=== PATIENT | female | born 1960 | race Caucasian/White ===

== ENCOUNTER 2017-12-22 20:35 | Emergency (ER) | payer MEDICARE, OTHER ==
--- NOTE | 2017-12-22 21:55 | EKG REPORT ---
SEVERITY:- ABNORMAL ECG - ATRIAL-PACED COMPLEXES MULTIFORM VENTRICULAR PREMATURE COMPLEXES : Confirmed by: Haley Mckeon MD 22-Dec-2017 21:54:51
--- NOTE | 2017-12-22 22:15 | ER Document Report ---
ED General - General Chief Complaint: Chest Pain > 30 Stated Complaint: PAIN LEFT ARM Time Seen by Provider: 12/22/17 22:13 Notes: Patient is 57-year-old female presents with complaint of pain starting in the left mid arm and going down into her hand with a tingling station into her left hand. It is worse when she abducts her left shoulder. She says started around 5 PM. She had similar pain in June when she had a heart attack. At that time she also had associated chest pressure which she does not have this time. She denies any chest pain or chest pressure this time. No shortness of breath. She is here from [place]. 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 She denies any trauma or injuries to show that she is aware of. 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 That is why she has pacemaker. They did a heart cath and she did not have a coronary blockage and did not require any stenting. TRAVEL OUTSIDE OF THE [place] IN LAST 30 DAYS: No Past Medical History - Social History Smoking Status: Never Smoker Frequency of alcohol use: None Drug Abuse: None Family History: Reviewed & Not Pertinent Review of Systems - Review of Systems Notes: My Normal Review Basic REVIEW OF SYSTEMS: CONSTITUTIONAL : Denies fever, chills, or sweats. Denies recent illness. EENT: No head or face pain. CARDIOVASCULAR: Denies chest pain. RESPIRATORY: Denies cough, cold, or chest congestion. Denies shortness of breath, difficulty breathing, or wheezing. GASTROINTESTINAL: Denies abdominal pain. Denies nausea, vomiting, or diarrhea. MUSCULOSKELETAL: Pain in left arm. NEUROLOGICAL: Denies altered mental status or loss of consciousness. Denies weakness or paralysis or loss of use of either side. Tingling type sensation into left hand. ALL OTHER SYSTEMS REVIEWED AND NEGATIVE. Physical Exam - Vital signs Vitals: Temp Pulse Resp BP Pulse Ox 98.5 F 69 20 160/70 H 96 12/22/17 20:54 12/22/17 20:54 12/22/17 20:54 12/22/17 20:54 12/22/17 20:54 - Notes Notes: General Appearance: Well nourished, alert, cooperative, no acute distress, no obvious discomfort. Vitals: reviewed, See vital signs table. Eyes: PERRL, EOMI, Conjuctiva clear Mouth: No decreasd moisture Neck: Supple, no neck tenderness, No thyromegaly Lungs: No wheezing, No rales, No rhonci, No accessory muscle use, good air exchange bilaterally. Heart: Normal rate, Regular rythm, No murmur, no rub Abdomen: Normal BS, soft, No rigidity, No abdominal tenderness, No guarding, no rebound, Extremities: strength 5/5 in all extremities, good pulses in all extremities, patient has repeat reduction of her symptoms including arm pain when I abduct her left shoulder. No pain with flexion of the shoulder. Patient has good distal sensation into her left hand. She is able to oppose her thumb with her fifth digit. She is able to abduct and abduct the fingers of her hands. She is able to open and close her fist without difficulty. Skin: warm, dry, appropriate color, no rash Neuro: speech clear, oriented x 3, normal affect, responds appropriately to questions. Course - Re-evaluation Re-evalutation: 12/23/17 06:06 Patient's troponin is negative. She had a previous KS she had chest pressure associated with the left arm pain. This time she has no chest pressure or chest pain. Her KS was in June. At that time she had a follow-up heart cath which showed no evidence of coronary disease or obstruction. At that time her KS was related to her dysrhythmia of tachybradycardia syndrome. She now has a pacemaker and is not having arrhythmia on the monitor. She looks well. Pain is reproduced with abduction of her left shoulder. It appears to be more musculoskeletal. At this time I feel she is safe to be discharged home but informed her she needs to have a low threshold to return to the ER if she has worsening recurrent pain, any pain or pressure in her chest, difficulty breathing, or she feels unwell in any way. Patient agrees with plan will be discharged home. Dictation of this chart was performed using voice recognition software; therefore, there may be some unintended grammatical errors. - Vital Signs Vital signs: Temp Pulse Resp BP Pulse Ox 98.1 F 62 20 136/68 H 96 12/22/17 23:48 12/22/17 23:48 12/22/17 23:48 12/22/17 23:48 12/22/17 23:48 - Laboratory Result Diagrams: 12/22/17 22:45 12/22/17 22:45 Laboratory results interpreted by me: 12/22/17 22:45 Chloride 108 H Glucose 134 H ALT 67 H - EKG Interpretation by Me Additional EKG results interpreted by me: 12/22/17 22:14 EKG is reviewed and interpreted by me. EKG shows sinus rhythm with a rate of [address] segment elevation or depression. Patient does have occasional PVC. VT interval, QRS duration, QTc intervals are within normal range. No old EKG available for comparison at this time. Discharge - Discharge Clinical Impression: Left arm pain Condition: Good Disposition: HOME, SELF-CARE Additional Instructions: Please follow up with your doctor as soon as you get back to [place]. Please have a low threshold to return to the ER if you have chest pressure, chest pain , difficulty breathing, weakness, worsening pain in your arm, or feel that you are worsening in any way.
[2017-12-22 23:04] LABS: ABSOLUTE EOSINOPHILS # (AUTO) 0.3 10^3/uL (0.0-0.6); ABSOLUTE LYMPHOCYTES (AUTO) 3.1 10^3/uL (0.5-4.7); ABSOLUTE MONOCYTES (AUTO) 0.8 10^3/uL (0.1-1.4); ABSOLUTE NEUT (AUTO) 5.2 10^3/uL (1.7-8.2); BASOPHILS % (AUTO) 0.4 % (0-2); EOSINOPHILS % (AUTO) 2.7 % (0-6); HEMATOCRIT 38.3 % (36.0-47.0); MEAN CORPUSCULAR HEMOGLOBIN 31.8 pg (27.0-33.4); MEAN CORPUSCULAR HGB CONC 33.9 g/dL (32.0-36.0); MEAN CORPUSCULAR VOLUME 94 fl (80-97); PLATELET COUNT 279 10^3/uL (150-450); RED BLOOD COUNT 4.08 10^6/uL (3.72-5.28); RED CELL DISTRIBUTION WIDTH 12.9 % (11.5-14.0); SEGMENTED NEUTROPHILS % (AUTO) 55.9 % (42-78); TOTAL CELLS COUNTED % (AUTO) 100 %; WHITE BLOOD COUNT 9.4 10^3/uL (4.0-10.5)
[2017-12-22 23:14] LABS: ALANINE AMINOTRANSFERASE 67 U/L (9-52); ALBUMIN 4.2 g/dL (3.5-5.0); ALKALINE PHOSPHATASE 75 U/L (38-126); ANION GAP 8 (5-19); ASPARTATE AMINO TRANSFERASE 36 U/L (14-36); BILIRUBIN,DIRECT 0.3 mg/dL (0.0-0.4); BILIRUBIN,TOTAL 0.5 mg/dL (0.2-1.3); BLOOD UREA NITROGEN 16 mg/dL (7-20); CALCIUM 9.9 mg/dL (8.4-10.2); CARBON DIOXIDE 24 mmol/L (22-30); CHLORIDE 108 mmol/L (98-107); GLUCOSE 134 mg/dL (75-110); POTASSIUM 4.1 mmol/L (3.6-5.0); SODIUM 140.4 mmol/L (137-145); TOTAL PROTEIN 7.6 g/dL (6.3-8.2)
[2017-12-22 23:54] VITALS: BP 136/68
== END 2017-12-22 23:51 | disposition home or self-care (01) ==
LOC: ER 20:35
DX: R07.9 Chest pain, unspecified (principal); M79.602 Pain in left arm; I25.2 Old myocardial infarction
CPT/HCPCS: 36415; 80053; 84484; 85025; 93005; 93010; 99284